=== PATIENT | female | born 1960 | race Caucasian/White ===

== ENCOUNTER → 2016-11-13 | Outpatient (CLI) | payer OTHER ==
[~2016-11-13] MED LIST: CALC500C70 PO; CHOL20007 PO; CLON1TAB3 PO; CYM/30 PO; DULOXETINE PO; KETO10TA PO; LYRICA PO; OXYC-57 PO; PANT40TA PO; SYMIN160 INH; TRAM-10 PO; albuterol inhaler INH
--- NOTE | 2016-11-13 10:55 | DIAGNOSTIC IMAGING REPORT ---
CHEST 2 VIEWS ROUTINE HISTORY:56 [id number] TROCHANTERIC BURSITIS COMPARISON: 07/26/2015 TECHNIQUE: Frontal and lateral views of the chest. FINDINGS: Lungs are hypoinflated with bronchovascular crowding and left basilar atelectasis. This accentuates the size of the cardiac silhouette. There is no pneumothorax, pleural effusion or focal airspace consolidation. Multilevel spurring is seen throughout the spine. Bones appear grossly intact. IMPRESSION: Hypoinflated lungs with bronchovascular crowding and left basilar atelectasis. The above report was generated using voice recognition software. It may contain grammatical, syntax or spelling errors. Electronically signed by: Marky Grady M.D. 11/13/2016 10:54 AM Dictated Date/Time: 11/13/2016 10:53 AM
[2016-11-13 12:17] LABS: BASO % 0.6 %; BASO ABS # 0.03 K/uL (0-0.2); COMPLETE YES; EOS % 7.8 %; HEMATOCRIT 42.8 % (37-47); IG% 0.2 %; LYMPH ABS # 1.31 K/uL (1.2-3.4); MEAN CELL VOLUME 95.3 fL (80-100); MEAN CORPUSCULAR HEMOGLOBIN 32.3 pg (25-34); MEAN CORPUSCULAR HGB CONC 33.9 g/dl (32-36); MEAN PLATELET VOLUME 9.9 fL (7.4-10.4); MONO % 8.7 %; NEUT % 56.7 %; PLATELET COUNT 208 K/uL (130-400); RED BLOOD COUNT 4.49 M/uL (4.2-5.4); WHITE BLOOD COUNT 5.03 K/uL (4.8-10.8)
[2016-11-13 12:31] LABS: BLOOD UREA NITROGEN 16 mg/dl (7-18); CALCIUM 9.2 mg/dl (8.5-10.1); CARBON DIOXIDE 28 mmol/L (21-32); CHLORIDE 107 mmol/L (98-107); CREATININE 0.88 mg/dl (0.60-1.20); GLUCOSE 133 mg/dl (70-99); SODIUM 142 mmol/L (136-145)
== END | disposition home or self-care (01) ==
LOC: C.CPL 10:22
PROVIDERS: ATTEND Orthopaedic Surgery
DX: Z01.810 Encounter for preprocedural cardiovascular examination (principal); Z01.811 Encounter for preprocedural respiratory examination; Z01.812 Encounter for preprocedural laboratory examination; M70.62 Trochanteric bursitis, left hip; R91.8 Other nonspecific abnormal finding of lung field; J98.11 Atelectasis

== ENCOUNTER → 2017-01-03 | Day surgery (SDC) | payer OTHER ==
[2016-12-02 15:44] VITALS: BMI 44.0
--- NOTE | 2017-01-02 14:01 | HISTORY & PHYSICAL EXAMINATION ---
DATE OF ADMISSION: 01/03/2017 CHIEF COMPLAINT: Carpometacarpal arthritis of the right hand. HISTORY OF PRESENT ILLNESS: Nalini is a pleasant 56-year-old female who has had a several year history of CMC joint pain of her right hand. I have given her multiple injections which have not helped long-term with her pain. She failed extensive conservative treatment, she is having trouble opening doors and opening jars. After failing years of conservative treatment, she has elected to proceed with a CMC arthroplasty. PAST MEDICAL HISTORY: Significant for asthma, hyperlipidemia and depression. MEDICATIONS: Klonopin 1 mg at night, Cymbalta 60 mg at night, clonazepam as needed for anxiety. PAST SURGICAL HISTORY: Significant for open rotator cuff repair 10 years ago, right shoulder arthroscopy with biceps tenotomy in 2016, left shoulder arthroscopy and biceps tenotomy in 2016 and bilateral total knee arthroplasties. ALLERGIES: INCLUDE ROCEPHIN AND CHLORAPREP. FAMILY HISTORY: Noncontributory. SOCIAL HISTORY: She is . Two kids. Rarely drinks, is mostly sedentary. REVIEW OF SYSTEMS: She complains of right hand pain. All other pertinent review of systems are negative. PHYSICAL EXAMINATION: GENERAL: She is awake, alert and oriented x3. She is in no apparent distress. She is very pleasant. HEAD, EYES, EARS, NOSE, AND THROAT: Pupils are equal, round and reactive to light. Extraocular motions intact. Oral mucosa is pink and moist. HEART: Regular rate per radial pulse. LUNGS: Wendy symmetrically bilaterally with no audible breath sounds. ABDOMEN: Soft, nontender, nondistended. MUSCULOSKELETAL: On physical examination of the right hand, she has a lot of tenderness to palpation directly over the CMC joint. She has a positive axial grind test. She is neurovascularly intact. X-rays of the right hand do show osteoarthritis at the CMC joint of the right thumb. IMPRESSION: Carpometacarpal arthritis of the right hand. PLAN: Will proceed with a CMC arthroplasty using an Arthrex TightRope. Postoperatively, she will be placed in a splint and discharged to home on oral pain medications.
[~2017-01-03] VITALS: Ht 170.2 cm; Wt 127.3 kg
[~2017-01-03] MED LIST changes: +ACETAMINOPHEN 1000 MG/100 ML IV IV ONE; +ACETAMINOPHEN 500 MG TAB PO SCH; +ATROPINE SULFATE 0.1 MG/ML 5ML SYR IV PRN; +BUPIVACAINE 0.25% 30 ML VIAL ONE; +BUPIVACAINE 0.5 % 5 MG/1 ML MPF 30ML VIAL ONE; +CEFAZOLIN 2000 MG/60 ML D5W 60 ML IV SCH; +CEFAZOLIN 2000 MG/60 ML D5W IV SCH; +CEFAZOLIN IV 2,000 MG/60 ML D5W IV ONE; +CLINDAMYCIN PHOS 150 MG/ML 2 ML VIAL ONE; +DEXAMETHASONE SOD INJ 4 MG/ML VIAL ONE; +EpHEDrine SULFATE INJ 50 MG/ML AMP IV PRN; +FENTANYL CITRATE INJ 50 MCG/1 ML 2 ML VIAL ONE; +HYDROmorphone INJ 1 MG/ML SYR ONE; +KETOROLAC TROMETHAMINE 30 MG/ML VIAL ONE; +LACTATED RINGER'S 1000ML 1,000 ML IV SCH; +LACTATED RINGER'S 1000ML IV SCH; +LIDOCAINE HCL 2% 2 ML VIAL (20MG/ML) ONE; +MIDAZOLAM HCL 1 MG/ML 2ML VIAL ONE; +NURSING VERBAL MED ORDER ONE; +ONDANSETRON INJ 2 MG/ML 2 ML VIAL IV PRN; +ONDANSETRON INJ 2 MG/ML 2 ML VIAL ONE; +OXYCODONE/ACETAMINOPHEN 5-325 TAB PO PRN; +PROPOFOL IV EMULSION 10 MG/ML 20 ML VIAL IV ONE; +SCOPOLAMINE 1.5 MG TDSY TD ONE; +SODIUM CHLORIDE 0.9% 1000ML 1,000 ML IV SCH
[2017-01-03 12:10] VITALS: BP 141/78; PULSE 70; TEMP 37.1; O2SAT 97; Ht 170.2 cm; Wt 127.3 kg
--- NOTE | 2017-01-03 13:27 | History & Physical Bridge Note ---
H&P Re-Evaluation Bridge Note: I have examined the patient, reviewed the History & Physical and in the interval since the performance of the History & Physical I have noted the following changes of clinical significance: No changes noted
--- NOTE | 2017-01-03 14:55 | DIAGNOSTIC IMAGING REPORT ---
INTRAOPERATIVE RIGHT HAND/FINGERS 2 VIEWS CLINICAL HISTORY: Arthritis. Button procedure. COMPARISON STUDY: 10/06/2016 FLUOROSCOPY TIME: 49 seconds.. NUMBER OF FLUOROSCOPIC IMAGES: 2 FINDINGS: There are postsurgical changes of a trapezium resection. Two radiopaque two holed metallic washers are visualized at the base of the first and second metacarpals. IMPRESSION: Intraoperative fluoroscopic spot images demonstrating postsurgical changes of a trapezium resection. Electronically signed by: Eliot Shepherd M.D. 01/03/2017 2:54 PM Dictated Date/Time: 01/03/2017 2:49 PM
--- NOTE | 2017-01-03 14:56 | Discharge Instructions ---
Discharge Instructions Date of Service Jan 03, 2017. Admission Reason for Admission: Right Thumb Carpometacarpal Joint Osteoarthrosis Discharge Discharge Diagnosis / Problem: SAME ABOVE Discharge Goals Goal(s): Decrease discomfort, Improve function Activity Recommendations Activity Limitations: as noted below Lifting Limitations: until after follow-up appointment Exercise/Sports Limitations: until after follow-up appointment . Instructions / Follow-Up Instructions / Follow-Up MEDICATIONS: * Resume previous medications unless instructed otherwise by your surgeon. * Always take pain medication on a full stomach or with food to avoid upset stomach. * Do not drink alcohol or drive while taking narcotics. * Ibuprofen or Tylenol may be taken if narcotic not needed. SPECIAL CARE INSTRUCTIONS: __ None _X_ Keep extremity elevated and iced x 48 hours; apply ice 20-30 minutes 8-10 times/day. May remove at night. __ Sling __24 hrs/day __ Remove at night __ Shoulder Immobilizer __ 24 hrs/day __ Remove at night _X_ Dressing _X_ Maintain until seen in office, may shower with plastic over site __ Remove dressings in 24-48 hours and then may shower __ Cover incisions with band-aids after showering __ Do not remove steri-strips Call physician if chills or temperature rises above 102 degrees or pain unrelieved by prescribed pain medications at . . Current Hospital Diet Patient's current hospital diet: Discharge Diet Recommended Diet: Regular Diet Fluid Restriction: None Procedures Procedures Performed: Right Thumb Carpometacarpal Arthroplasty Pending Studies Studies pending at discharge: no Work Instructions Return To Work: after follow-up Lifting Limitations: NO LIFTING WITH RIGHT ARM Medical Emergencies . Who to Call and When: Medical Emergencies: If at any time you feel your situation is an emergency, please call 911 immediately. . Non-Emergent Contact Non-Emergency issues call your: Primary Care Provider Call Non-Emergent contact if: you have a fever, temperature is above 101.5 . "Provider Documentation" section prepared by Dharmesh Aragon. . VTE Core Measure Inpt VTE Proph given/why not?: Treatment not indicated
[2017-01-03] MEDS: FENTANYL CITRATE INJ 50 MCG/1 ML 2 ML VIAL IV PRN ×4 (15:02→15:31)
--- NOTE | 2017-01-03 15:04 | [facility] Post Operative Brief Note ---
Immediate Operative Summary Operative Date Jan 03, 2017. Pre-Operative Diagnosis Carpometacarpal Arthritis Right Hand Post-Operative Diagnosis Carpometacarpal Arthritis Right Hand Procedure(s) Performed Right Thumb Carpometacarpal Arthroplasty Surgeon Dr. Griffin Kennedy Home Service Advisor Surgeon(s) Dharmesh Aragon PA-C Estimated Blood Loss 5mL Findings as above Specimens none per surgeon Dr. Griffin Kennedy Complication(s) None Disposition Recovery Room / PACU
[2017-01-03 16:45] VITALS: BP 107/61; PULSE 85; TEMP 36.6; O2SAT 97
[2017-01-03 17:15] VITALS: BP 98/58; PULSE 80; O2SAT 93
[2017-01-03 17:45] VITALS: BP 100/57; PULSE 78; TEMP 36.8; O2SAT 95
--- NOTE | 2017-01-03 20:34 | Anesthesiology Progress Note ---
Anesthesia Post Op Note Date & Time Jan 03, 2017 at 20:34 Vital Signs Pain Intensity: 1 Vital Signs Past 12 Hours Date Time Temp Pulse Resp B/P (MAP) Pulse Ox O2 Delivery O2 Flow Rate FiO2 01/03/17 17:45 36.8 78 18 100/57 95 Room Air 01/03/17 17:15 80 20 98/58 93 Room Air 01/03/17 16:45 36.6 85 20 107/61 97 Nasal Cannula 2 01/03/17 16:35 36.9 73 14 113/61 94 Nasal Cannula 2 01/03/17 16:25 78 12 111/74 96 Nasal Cannula 2 01/03/17 16:15 80 17 127/68 96 Nasal Cannula 2 01/03/17 16:05 85 14 98/68 (77) 96 Nasal Cannula 2 01/03/17 15:55 85 14 120/72 96 Nasal Cannula 2 01/03/17 15:45 88 12 113/90 94 Nasal Cannula 2 01/03/17 15:35 87 20 129/82 96 Nasal Cannula 2 01/03/17 15:25 81 13 143/85 95 Nasal Cannula 2 01/03/17 15:15 90 18 138/90 99 Oxymask 10 01/03/17 15:05 88 13 152/115 99 Oxymask 10 01/03/17 14:55 36.0 94 15 130/101 100 Oxymask 10 01/03/17 12:10 37.1 70 20 141/78 (99) 97 Room Air Notes Mental Status: alert / awake / arousable, participated in evaluation Pt Amnestic to Procedure: Yes Nausea / Vomiting: adequately controlled Pain: adequately controlled Airway Patency, RR, SpO2: stable & adequate BP & HR: stable & adequate Hydration State: stable & adequate Anesthetic Complications: no major complications apparent
--- NOTE | 2017-01-04 00:17 | OPERATIVE REPORT ---
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 POSTOPERATIVE DIAGNOSIS: Same. PROCEDURE: Right hand basilar joint suspension arthroplasty using Arthrex Mini TightRope and de Quervain's release. SURGEON: Dr. Griffin Kennedy. LICENSED FINAL EXPENSE AGENTS: Jun Aragon PA-C, whose assistance was necessary for retraction and positioning of the hand. ANESTHESIA: General. COMPLICATIONS: None. CONDITION: Stable to PACU. INDICATIONS: Nalini is a pleasant 56-year-old female who has been dealing with several-year history of right wrist pain. All of her pain is located at the CMC joint of the thumb. X-rays and clinical examination were diagnostic for arthritis of the right CMC joint. After failing conservative treatment, she elected to undergo basilar joint arthroplasty. PROCEDURE IN DETAIL: On 01/03/2017, she arrived at [facility] for the above procedure. She was seen in the preoperative holding area and the operative extremity was identified and signed. She was given preoperative antibiotic, taken back to the operating room, laid on table in supine position and put under general anesthesia. The right hand was then prepped and draped in sterile fashion. Timeout was done, and the patient and operative extremity was properly identified. A curvilinear incision was made on the radial aspect of the CMC joint. Dissection was taken down through the fascia and care was taken not to disrupt the digital nerves. The abductor pollicis was identified. The first dorsal compartment was released. This completed a de Quervain's release. The capsule was then opened up and the CMC joint was evaluated. An Arthrex guide pin was placed from the radial aspect of the proximal thumb metacarpal and passed through the proximal third of the index metacarpal. A small incision was made on the dorsal aspect of the hand and the pin was passed through. An Arthrex TightRope button was then passed through this thumb metacarpal and out the index metacarpal. A button was placed on the index metacarpal and the tails were tied. Appropriate tension was checked under fluoroscopy. The trapezium was then removed in piecemeal fashion. Final fluoroscopy was taken. The overall tensioning of the TightRope was adjusted and I was able to lie the head flat, get 90 degrees of abduction and about 50% shuck. The tails were then tied tight and cut. The knot stack was easily buried between the index and middle metacarpals. The skin was closed with 4-0 nylon suture. The capsule around the basilar joint was closed with 0 Vicryl suture and the abductor pollicis was slightly advanced. The skin was then closed with 3-0 Vicryl and a 4-0 nylon suture. She was then placed in a soft dressing and a thumb spica splint. She was then extubated, [facility] and taken to the postanesthesia care unit in stable condition. She tolerated the procedure well. I attest to the content of the Intraoperative Record and any orders documented therein. Any exception s are noted below.
== END | disposition home or self-care (01) ==
LOC: C.ACU 11:55
PROVIDERS: ATTEND Orthopaedic Surgery
DX: M19.041 Primary osteoarthritis, right hand (principal); E78.5 Hyperlipidemia, unspecified; J45.909 Unspecified asthma, uncomplicated; F32.9 Major depressive disorder, single episode, unspecified; Z79.899 Other long term (current) drug therapy